=== PATIENT | female | born 1970 | race Caucasian/White ===

== ENCOUNTER → 2020-09-24 | Outpatient (CLI) | payer OTHER ==
--- NOTE | 2020-09-24 17:08 | RAD ---
Study: XR LUMBAR SPINE 2-3V Indication: Low back pain. Comparison: None available. Findings: 5 nonrib-bearing lumbar vertebral elements. Mild grade 1 anterolisthesis of L5 on S1. Probable L5 pars defects. Mild disc space narrowing at L4-L 5 and L5-S1. Facet arthrosis at a few levels but appearing relatively mild such as at L3-L4 and L4-L5 . Maintained vertebral body height. Impression: 1. Grade 1 anterolisthesis of L5 on S1 and presumed chronic bilateral pars defects at L5. 2. Mild disc space height loss at L4-L5 and L5-S1. 3. Relatively mild lower lumbar facet degeneration. Electronically signed by: KIKE HENDERSON MD (09/24/2020 5:06 PM) [id number]
== END ==
LOC: RAD 16:06
PROVIDERS: ATTEND Family Medicine
DX: M47.816 Spondylosis without myelopathy or radiculopathy, lumbar region (principal); M48.061 Spinal stenosis, lumbar region without neurogenic claudication; R42 Dizziness and giddiness; G47.00 Insomnia, unspecified
CPT/HCPCS: 72100